=== PATIENT | female | born 1970 | race Caucasian/White ===

== ENCOUNTER 2024-07-22 12:22 | Observation (INO) ==
--- NOTE | 2024-07-22 12:42 | Emergency Department Note ---
HPI - Chest Pain General Chief Complaint: Chest Pain Stated Complaint: HIGH BLOOD PRESSURE, LOW O2 SAT Time Seen by Provider: 07/22/24 12:36 Source: patient and family Mode of arrival: walk-in Limitations: no limitations History of Present Illness HPI narrative: This is a 53 year old female patient that presents to the ER with c/o substernal chest pain radiating down left arm. Patient also c/o having brain fog and a headache today. Patient denies any SOB, back pain, abdominal pain, fever, chills, numbness, tingling, weakness or N/V/D MD complaint: Reports chest pain Onset (ago): hour(s) (3) Timing of current episode: Reports constant Prior episodes: Yes Onset: Reports during rest Pain location: Reports substernal Pain radiation: Reports left arm Severity: mild Quality: Reports tightness Relieving factors: Reports nothing Exacerbating factors: Reports nothing Treatment prior to arrival: Reports none Risk Factors Coronary artery disease risk factors: Reports hypertension Thoracic aortic dissection risk factors: Reports none Pulmonary embolism risk factors: Reports none Related Data Home Medications Medication Instructions Recorded Confirmed amlodipine 2.5 mg tablet 2.5 mg PO DAILY 06/14/24 06/14/24 clopidogrel 75 mg tablet 75 mg PO DAILY 06/14/24 06/14/24 diazepam 5 mg tablet 5 mg PO BID 06/14/24 06/14/24 gabapentin 100 mg capsule 100 mg PO BID 06/14/24 06/14/24 modafinil 200 mg tablet 200 mg PO BID 06/14/24 06/14/24 tramadol 50 mg tablet 50 mg PO .prn 06/14/24 06/14/24 Previous Rx's Medication Instructions Recorded albuterol sulfate 90 mcg/actuation 2 puff inhalation QID PRN 06/14/24 aerosol inhaler shortness of breath or wheezing #8.5 grams benzonatate 100 mg capsule 100 mg PO TID PRN cough #21 caps 06/14/24 doxycycline hyclate 100 mg capsule 100 mg PO BID bronchitis #20 caps 06/14/24 methylprednisolone 4 mg tablets in See Rx Instructions PO .COMPLEX 06/14/24 a dose pack (Medrol (Chris)) bronchitis #21 ea Allergies Allergy/AdvReac Type Severity Reaction Status Date / Time fexofenadine (From Ana) Allergy Mild Verified 07/22/24 12:53 levofloxacin (From Levaquin) Allergy Mild Verified 07/22/24 12:53 lorazepam (From Ativan) Allergy Mild Verified 07/22/24 12:53 morphine Allergy Mild Verified 07/22/24 12:53 NSAIDS (Non-Steroidal Allergy Mild Verified 07/22/24 12:53 Anti-Inflamma Review of Systems Status of ROS 10 or more systems reviewed and unremark able except as noted in history and below Constitutional Denies: fever, chills, change in weight, fatigue, malaise or night sweats Eyes Denies: change in vision, blurry vision, blind spots or light sensitivity Ears, nose, mouth, and throat Denies: throat pain, neck pain, throat swelling, difficulty swallowing, hoarseness, mouth pain or swelling of lips/tongue Cardiovascular Reports: chest pain; Denies: palpitations, edema, swelling of feet/ankles, lightheadedness or shortness of breath with exertion Respiratory Denies: shortness of breath, cough, wheezing, stridor, pain on inspiration or change in phlegm color Gastrointestinal Denies: abdominal pain, nausea, vomiting, coffee grounds in vomit, heartburn, diarrhea or constipation Genitourinary Denies: painful urination, urinary frequency, urinary urgency, urinary incontinence, blood in urine, difficulty voiding, pelvic pain, painful menstruation or vaginal bleeding Musculoskeletal Denies: back pain, neck pain, extremity pain, extremity swelling, joint pain or limited range of motion Integumentary/Breast Denies: rash, itching, redness, skin pain, skin tendernes s, skin swelling or sores Neurological Reports: headache; Denies: numbness in extremities, weakness in extremities, lack of coordination, dizziness, vertigo or confusion Psychiatric Denies: anxiety, mood swings, panic attacks, change in sleep pattern, hopelessness or loss of interest Endocrine Denies: excessive urination, excessive thirst, fatigue, cold intolerance, excessive sweating or flushing Hematologic/Lymphatic Denies: easy bruising, easy bleeding or enlarged lymph nodes Allergic/Immunologic Denies: hives, throat swelling, tongue swelling, facial swelling or wheezing Exam Constitutional: normal general appearance and no apparent distress Vital Signs - 24 hr 07/22/24 12:25 07/22/24 12:25 07/22/24 13:00 Temperature 97.8 F Pulse Rate 91 H 78 Respiratory Rate 18 15 Blood Pressure 170/93 138/88 Pulse Oximetry 100 100 97 Oxygen Delivery Me thod Room Air Room Air 07/22/24 14:00 07/22/24 15:00 07/22/24 16:00 Temperature Pulse Rate 68 75 74 Respiratory Rate 14 14 17 Blood Pressure 124/87 118/87 135/88 Pulse Oximetry 97 97 97 Oxygen Delivery Me thod HENMT: normocephalic, head/scalp atraumatic, hearing grossly normal bilaterally, external ears normal, nasal mucous membranes normal, external nose normal, oral mucous membranes normal and oropharynx normal Eyes: PERRL, EOMs intact bilaterally, conjunctivae normal and no scleral icterus Neck/C-Spine: visual inspection normal and trachea midline Lymph: no lymphadenopathy noted Chest: inspection of chest normal Respiratory: breath sounds equal bilaterally, normal respiratory effort, clear to auscultation bilaterally, no wheezes, no rales, no retractions, no use of accessory muscles and chest percussion normal Cardiovascular: normal heart rate noted, regular rhythm noted, no gallop, no rub, no murmur, no JVD, no clicks, peripheral pulses 2+ throughout and no additional abnormal heart sounds Gastrointestinal: abdomen normal to inspection, abdomen soft to palpation, nontender to palpation, nontender to percussion, nondistended, normoactive bowel sounds, no hepatosplenomegaly, no masses, no pulsatile mass, no ascites and no hernia Genitourinary: no CVA tenderness Back/Pelvis: spine normal to inspection Extremities: normal to inspection, normal to palpation, no tenderness, full ROM, no joint enlargement and no deformity Neurology: foreign car mechanic II-XII intact, no movement abnormality noted, no focal motor deficit noted, no sensory deficits noted, gait normal, speech normal, coordination normal, no pronator drift noted, no fasciculations noted and GCS n ormal neurologically intact on exam Psychiatry: mental status grossly normal, oriented x3, thought process normal, cooperative, affect normal, psychomotor activity normal and memory normal Skin: skin color normal Course Course Hospital Course: 1500: due to patients hx, ongoing chest pain, will admit patient to the hospital for further evaluation and treatment, VSS, no s/s of acute distress noted Reevaluation(s) Reevaluation #1: [id number]: Floor RN was concerned about patients frown droop on the left side when she is at rest (normal for patient per patient), examined patient again, patient has no facial droop on exam, facial nerves all intact and remains neurologically intact on the rest of the exam as well. NIELSEN without difficulty and equal. no s/s of acute distress noted Vital Signs Vital signs: Vital Signs Temperature 97.8 F 07/22/24 12:25 Pulse Rate 91 H 07/22/24 12:25 Respiratory Rate 18 07/22/24 12:25 Blood Pressure 170/93 07/22/24 12:25 Pulse Oximetry 100 07/22/24 12:25 Oxygen Delivery Method Room Air 07/22/24 12:25 Temperature 98.3 F 07/22/24 16:45 Pulse Rate 70 07/22/24 16:45 Respiratory Rate 17 07/22/24 16:45 Blood Pressure 141/87 07/22/24 16:45 Pulse Oximetry 97 07/22/24 16:45 Oxygen Delivery Method Room Air 07/22/24 17:10 MDM - Chest Pain Lab Data Labs: Lab Results 07/22/24 07/22/24 Range/Units 12:35 12:45 WBC 7.9 (4.3-9.3) K/uL RBC 4.5 (4.00-5.50) M/uL Hgb 12.6 (12.5-15.8) gm/dL Hct 39.2 (35.9-46.7) % MCV 87.6 (81.0-93.7) fl MCH 28.1 (27.6-32.2) pg MCHC 32.1 L (33.1-35.3) g/dl RDW 14.5 H (11.4-14.2) % Plt Count 379 H (152-353) K/uL MPV 6.9 (6.9-10.8) fl Gran % 56.7 (47.8-71.3) % Lymph % (Auto) 31.0 (20.0-43.0) % Rock % (Auto) 6.1 (3.6-9.8) % Eos % (Auto) 5.6 H (0.4-2.8) % Baso % (Auto) 0.6 (0.1-0.85) Lymph # (Auto) 2.4 (1.1-3.1) Rock # (Auto) 0.5 L (1.1-3.1) Eos # (Auto) 0.4 H (0.0-0.2) Baso # (Auto) 0.0 (0.0-0.1) Absolute Gran (auto) 4.5 (2.3-6.0) D-Dimer 708 H (100-600) ng/mL Sodium 139 (136-145) mmol/L Potassium 3.3 L (3.6-5.2) mmol/L Chloride 101.0 (98-107) mmol/L Carbon Dioxide 30 (21-32) mmol/L Anion Gap 8.0 (4-14) mEq/L BUN 9 (7-18) mg/dL Creatinine 0.7 (0.6-1.3) mg/dL Estimated GFR 103.4 (>59.9) Glucose 92 (70-110) mg/dL Calcium 8.6 (8.5-10.1) mg/dL Total Bilirubin 0.27 (0.0-1.0) mg/dL AST 16 (15-37) U/L ALT 22 L (30-65) U/L Alkaline Phosphatase 154 H (50-136) U/L Troponin I High Sens <4.00 L (4.0-60.4) ng/L Total Protein 7.4 (6.4-8.2) g/dL Albumin 3.6 (3.4-5.0) g/dL Urine Color Yellow (STRAW/YELL.) Urine Appearance Clear (CLEAR) Ur Specific Julian 1.015 (1.001-1.035) Urine Protein Negative (NEGATIVE) Urine Glucose (UA) Normal (NORMAL) Urine Ketones Negative (NEGATIVE) Urine Occult Blood Negative (NEG - TRACE) Urine Nitrite Negative (NEGATIVE) Urine Bilirubin Negative (NEGATIVE) Urine Urobilinogen Normal (NORMAL) Ur Leukocyte Esterase Negative (NEGATIVE) Fluid pH 7.0 (5 - 9) Urine Opiates Screen Neg. (NEGATIVE) Urine Methadone Screen Neg. (NEGATIVE) Barbiturate Screen Neg. (NEGATIVE) Ur Phencyclidine Scrn Neg. (NEGATIVE) Amphetamines Screen Neg. (NEGATIVE) U Benzodiazepines Scrn Pos. (NEGATIVE) Urine Cocaine Screen Neg. (NEGATIVE) U Marijuana (THC) Screen Neg. (NEGATIVE) Discharge Plan Discharge Patient Disposition: Admitted As Observation Condition: Stable Interventions: ED Discharge Assessment Last Done: 07/22/24 16:45 ED Discharge Vital Sign Last Done: 07/22/24 16:45 Emergency Department Charge Sheet Last Done: 07/22/24 16:45 Discharge Date/Time: 07/22/24 16:45 [facility] Medical History (Updated 07/22/24 @ 12:57 by Farnaz Dumont, RN) GERD (gastroesophageal reflux disease) Anxiety Depression HTN (hypertension) Brain aneurysm Surgical History (Updated 07/22/24 @ 12:57 by Farnaz Dumont, RN) History of gastric bypass Social History Smoking status: never smoker
[2024-07-22 12:53] LABS: Basophils%(Percent) Auto 0.6 (0.1-0.85); Eosinophils#(Absolute)Auto 0.4 (0.0-0.2); Eosinophils%(Percent) Auto 5.6 % (0.4-2.8); Granulocytes % - Auto 56.7 % (47.8-71.3); Granulocytes#(Absolute)- Auto 4.5 (2.3-6.0); Hematocrit 39.2 % (35.9-46.7); Mean Corpuscular Volume 87.6 fl (81.0-93.7); Monocytes #(Absolute)- Auto 0.5 (1.1-3.1); Monocytes %(Percent)- Auto 6.1 % (3.6-9.8); Platelet Count 379 K/uL (152-353); White Blood Count 7.9 K/uL (4.3-9.3)
[2024-07-22 12:57] LABS: Specific Gravity Urine 1.015 (1.001-1.035); Urine Appearance CLEAR (CLEAR); Urine Blood NEGATIVE (NEG - TRACE); Urine Color YELLOW (STRAW/YELL.); Urine Urobilinogen Normal (NORMAL)
[2024-07-22 13:05] LABS: Amphetamine Screen Urine NEG. (NEGATIVE); Cannabinoid Screen Urine NEG. (NEGATIVE); Cocaine Screen Urine NEG. (NEGATIVE); Methadone Screen Urine NEG. (NEGATIVE); Opiate Screen Urine NEG. (NEGATIVE); Potassium 3.3 mmol/L (3.6-5.2)
[2024-07-22] MEDS ORDERED: ONDANSETRON HCL/PF 4 MG/2 ML VIAL ONE (15:07)
[2024-07-22] MEDS ORDERED: ACETAMINOPHEN 500 MG TABLET ONE (15:07)
[2024-07-22] MEDS: ONDANSETRON HCL/PF 4 MG/2 ML VIAL INJ STA (15:10)
[2024-07-22] MEDS: ACETAMINOPHEN 500 MG TABLET PO ONE (15:11)
[2024-07-22] MEDS: POTASSIUM CHLORIDE 20 MEQ TAB.ER.PRT PO ONE (15:33)
[2024-07-22] MEDS: KETOROLAC 30 MG/ML INJ VIAL IVP ONE (16:34)
[2024-07-22] MEDS: ONDANSETRON HCL/PF 4 MG/2 ML VIAL IVP PRN (19:34)
[2024-07-22] MEDS: TRAMADOL HCL 50 MG TABLET PO PRN (22:17)
[2024-07-22] MEDS: ACETAMINOPHEN 325 MG TABLET PO PRN (22:17)
[2024-07-22] MEDS: diazePAM 5 MG TABLET PO PRN (22:17)
[2024-07-22] MEDS: GABAPENTIN 100 MG CAPSULE PO SCH (22:17)
[2024-07-22] MEDS: NITROGLYCERIN 1 GM OINT...G. TD SCH (22:18)
[2024-07-23 02:21] LABS: Potassium 3.4 mmol/L (3.6-5.2)
[2024-07-23] MEDS: TRAMADOL HCL 50 MG TABLET PO ONE (02:30)
[2024-07-23 02:54] LABS: Basophils%(Percent) Auto 0.6 (0.1-0.85); Eosinophils#(Absolute)Auto 0.4 (0.0-0.2); Eosinophils%(Percent) Auto 7.5 % (0.4-2.8); Granulocytes % - Auto 42.7 % (47.8-71.3); Granulocytes#(Absolute)- Auto 2.3 (2.3-6.0); Hematocrit 34.6 % (35.9-46.7); Mean Corpuscular Volume 88.2 fl (81.0-93.7); Monocytes #(Absolute)- Auto 0.4 (1.1-3.1); Platelet Count 331 K/uL (152-353); White Blood Count 5.4 K/uL (4.3-9.3)
[2024-07-23 02:59] LABS: INR 1.03
[2024-07-23] MEDS: AMLODIPINE BESYLATE 5 MG TABLET PO SCH (09:36)
[2024-07-23] MEDS: diphenhydrAMINE HCL 50 MG/ML VIAL INJ ONE ×2 (10:39→21:11)
[2024-07-23] MEDS: KETOROLAC 30 MG/ML INJ VIAL IVP PRN (10:40)
[2024-07-23] MEDS: METOCLOPRAMIDE HCL 10 MG in 0.9 % SODIUM CHLORIDE 50 ML IVP PRN (10:41)
[2024-07-23] MEDS: diphenhydrAMINE HCL 50 MG/ML VIAL ONE (10:48)
[2024-07-23] MEDS: KETOROLAC 30 MG/ML INJ VIAL ONE (10:48)
[2024-07-23] MEDS: 0.9 % SODIUM CHLORIDE 50 ML IV ONE (10:48)
[2024-07-23] MEDS: METOCLOPRAMIDE HCL 5 MG/ML VIAL ONE (10:48)
--- NOTE | 2024-07-23 14:27 | History & Physical Report ---
H&P: HPI History of Present Illness Chief complaint: chest pain,headache Narrative: This is a 53 year old female patient that presents to the ER with c/o substernal chest pain radiating down left arm. Patient also c/o having brain fog and a headache today. Patient denies any SOB, back pain, abdominal pain, fever, chills, numbness, tingling, weakness or N/V/D. Admitted patient to med/surg for further observation and treatment. Day one of hospital stay, provider consulted with patient's current Neurologist with symptoms and agreement on plan of care. Patient had a previous aneurysm back in April 2024 of 2.3 mm of Anterior Communicating Artery behind previous aneurysm with repair. Patient has stated the pain from her headache is 9 out of 10 and feels like the headache with her previous aneurysm and similar to some of her recent headaches that had improved with aneurysm removal. Chest pain was radiating down left arm and has resolved since admission and Nitro present for the the chest pain may be worsening her headache. Her spouse expressed concern about her leg hurting where she had stents located, stating the last time she had pain there, she had to have the stinted areas "cleaned out". Patient has been given Metoclopramide and Acetaminophen for headache pain. Patient was able to rest once medication was administered as the previous meds gave her no relief and CTA was ordered by me for Dr Mojica neurology in [place] at [facility]. family and patient given lots of reassurance and education as they are anxious at this time talked to patient and son together and separately. Review of Systems Status of ROS 10 or more systems reviewed and unremark able except as noted in history and below Constitutional Denies: fever, chills, change in weight, fatigue, malaise or ni ght sweats Eyes Denies: change in vision, blurry vision, blind spots or light sensitivity Ears, nose, mouth, and throat Denies: throat pain, neck pain, throat swelling, difficulty swallowing, hoarseness, mouth pain, swelling of lips/tongue or vertigo Cardiovascular Reports: chest pain; Denies: palpitations, edema, swelling of feet/ankles, lightheadedness or shortness of breath with exertion Respiratory Denies: shortness of breath, cough, wheezing, stridor, pain on inspiration or change in phlegm color Gastrointestinal Denies: abdominal pain, nausea, vomiting, coffee grounds in vomit, heartburn, diarrhea, constipation or difficulty swallowing Genitourinary Denies: painful urination, urinary frequency, urinary urgency, urinary incontinence, blood in urine, difficulty voiding, pelvic pain, painful menstruation or vaginal bleeding Musculoskeletal Denies: back pain, neck pain, extremity pain, extremity swelling, joint pain or limited range of motion Integumentary/Breast Denies: rash, itching, redness, skin pain, skin tenderness, skin swelling or sores Neurological Reports: headache; Denies: numbness in extremities, weakness in extremities, lack of coordination, dizziness, vertigo or confusion Psychiatric Denies: anxiety, mood swings, panic attacks, change in sleep pattern, hopelessness or loss of interest Endocrine Denies: excessive urination, excessive thirst, fatigue, cold intolerance, excessive sweating or flushing Hematologic/Lymphatic Denies: easy bruising, easy bleeding or enlarged lymph nodes Allergic/Immunologic Denies: hives, throat swelling, tongue swelling, facial swelling or wheezing PFSH PFS Medical History (Updated 07/23/24 @ 16:04 by Trisha Soler DO) Aneurysm of anterior communicating artery Intractable vascular headache GERD (gastroesophageal reflux disease) Anxiety Depression HTN (hypertension) Brain aneurysm Surgical History History of gastric bypass Social History Smoking status: never smoker Problems where you live: no known problems Highest level of school completed/degree received: high school Meds Home Medications and Allergies Home Medications Medication Instructions Recorded Confirmed Type albuterol sulfate 90 mcg/actuation 2 puff inhalation QID PRN 06/14/24 07/23/24 Rx aerosol inhaler shortness of breath or wheezing #8.5 grams amlodipine 2.5 mg tablet 2.5 mg PO DAILY 06/14/24 07/23/24 History clopidogrel 75 mg tablet 75 mg PO DAILY 06/14/24 07/23/24 History diazepam 5 mg tablet 5 mg PO BID PRN anxiety 06/14/24 07/23/24 History doxycycline hyclate 100 mg capsule 100 mg PO BID bronchitis #20 caps 06/14/24 07/23/24 Rx gabapentin 100 mg capsule 100 mg PO BID 06/14/24 07/23/24 History modafinil 200 mg tablet 200 mg PO BID 06/14/24 07/23/24 History tramadol 50 mg tablet 50 mg PO BID PRN pain 06/14/24 07/23/24 History acetaminophen 325 mg capsule 325 mg PO Q6H PRN pain 07/23/24 07/23/24 History biotin 1 mg capsule 2 mg PO BID 07/23/24 07/23/24 History cholecalciferol (vitamin D3) 1,250 1,250 mcg PO QWEEK 07/23/24 07/23/24 History mcg (50,000 unit) capsule cyanocobalamin (vitamin B-12) 1,000 mcg PO DAILY 07/23/24 07/23/24 History 1,000 mcg tablet (Vitamin B-12) multivitamin with minerals-folic tab PO 07/23/24 History acid 200 mcg chewable tablet (Adult Multivitamin Gummies) pantoprazole 40 mg tablet,delayed 40 mg PO QDAY 07/23/24 07/23/24 History release semaglutide (weight loss) 0.25 0.5 mg subcut Q7D 07/23/24 07/23/24 History mg/0.5 mL subcutaneous pen injector (Shannonvaudrey) valsartan 80 mg tablet 80 mg PO QDAY 07/23/24 07/23/24 History Allergies Allergy/AdvReac Type Severity Reaction Status Date / Time fexofenadine (From Ana) Allergy Mild Verified 07/22/24 12:53 levofloxacin (From Levaquin) Allergy Mild Verified 07/22/24 12:53 lorazepam (From Ativan) Allergy Mild Verified 07/22/24 12:53 morphine Allergy Mild Verified 07/22/24 12:53 NSAIDS (Non-Steroidal Allergy Mild Verified 07/22/24 12:53 Anti-Inflamma Exam Exam: Patient resting in low lee's position with spouse at bedside upon entering room for exam. Constitutional: abnormal general appearance (disheveled) and (chronically ill), distress noted (moderate), abnormal body habitus (obese), limitations noted (behavioral limitations) and (physical limitations) and alert Vital Signs - 24 hr 07/22/24 14:00 07/22/24 15:00 07/22/24 16:00 Temperature Pulse Rate 68 75 74 Pulse Rate [Left A pical] Respiratory Rate 14 14 17 Blood Pressure 124/87 118/87 135/88 Blood Pressure [Le ft Arm] Pulse Oximetry 97 97 97 Oxygen Delivery Me thod 07/22/24 16:45 07/22/24 16:45 07/22/24 17:05 Temperature 98.3 F 98.5 F Pulse Rate 70 70 Pulse Rate [Left A pical] 71 Respiratory Rate 17 17 16 Blood Pressure 141/87 141/87 Blood Pressure [Le ft Arm] 135/76 Pulse Oximetry 97 97 98 Oxygen Delivery Me thod Room Air 07/22/24 17:10 07/22/24 22:18 07/22/24 23:18 Temperature Pulse Rate Pulse Rate [Left A pical] Respiratory Rate Blood Pressure 119/71 112/60 Blood Pressure [Le ft Arm] Pulse Oximetry Oxygen Delivery Me thod Room Air 07/23/24 08:03 07/23/24 09:36 07/23/24 12:39 Temperature 98.4 F 98.0 F Pulse Rate Pulse Rate [Left A pical] 64 65 Respiratory Rate 19 18 Blood Pressure 100/60 Blood Pressure [Le ft Arm] 100/60 90/53 Pulse Oximetry 93 L 94 L Oxygen Delivery Me thod Room Air Room Air HENMT: normocephalic, head/scalp atraumatic, hearing grossly abnormal, external ears normal, nasal mucous membranes normal, external nose normal, oral mucous membranes normal, oropharynx normal and dentition abnormal Eyes: PERRL, EOMs intact bilaterally, conjunctivae normal, no scleral icterus, papilledema noted, normal visual ho by confrontation, fundi abnormal, alignment normal, periorbital findings normal, visual acuity abnormal and no nystagmus Neck/C-Spine: trachea midline, cervical spine nontender, abnormal cervical ROM noted, supple, no meningeal signs, thyroid normal and no carotid bruits Lymph: no lymphadenopathy noted and no lymphedema noted Chest: inspection of chest normal Respiratory: breath sounds equal bilaterally, normal respiratory effort, clear to auscultation bilaterally, no wheezes, no rales, no retractions, no use of accessory muscles and chest percussion normal Cardiovascular: normal heart rate noted, regular rhythm noted, no gallop, no rub, no murmur, no JVD, no clicks, peripheral pulses 2+ throughout, no bruits noted and no additional abnormal heart sounds Gastrointestinal: abdomen normal to inspection, abdomen soft to palpation, nontender to palpation, nontender to percussion, nondistended, normoactive bowel sounds, no hepatosplenomegaly, no masses, no pulsatile mass, no ascites and no hernia Genitourinary: no CVA tenderness and bladder normal to palpation Back/Pelvis: no thoracic spine tenderness, no lumbar spine tenderness, thoracic spine ROM normal and lumbar spine ROM normal Extremities: normal to inspection, normal to palpation, no tenderness, full ROM, no joint enlargement and no deformity Neurology: clinical academic allergist II-XII intact, no movement abnormality noted, no focal motor deficit noted, sensory deficit noted, deep tendon reflexes 2+ bilaterally, gait abnormality noted, speech normal, coordination normal and GCS normal Psychiatry: mental status grossly normal, oriented x3, thought process normal, cooperative, affect normal, psychomotor activity normal and memory normal Feel stressed/tense/nervous/anxious/difficulty sleeping: decline to answer Skin: skin color normal, no rash, no lesions, ecchymosis noted, no wounds, no lacerations, skin turgor abnormal, no jaundice, no petechiae, no mottling and nails abnormality noted Assessment and Plan Assessment and Plan (1) Chest pain: Qualifiers: Chest pain type: unspecified Qualified Code(s): R07.9 - Chest pain, unspecified Code(s): R07.9 - Chest pain, unspecified (2) Intractable vascular headache: Code(s): G44.1 - Vascular headache, not elsewhere classified (3) Aneurysm of anterior communicating artery: Assessment and Plan: CTA head pending and will do MRI if CTA unchanged and headache not resolved Code(s): I67.1 - Cerebral aneurysm, nonruptured (4) HTN (hypertension): Qualifiers: Hypertension type: primary hypertension Qualified Code(s): I10 - Essential (primary) hypertension Code(s): I10 - Essential (primary) hypertension (5) Anxiety: Code(s): F41.9 - Anxiety disorder, unspecified (6) GERD (gastroesophageal reflux disease): Qualifiers: Esophagitis presence: without esophagitis Qualified Code(s): K21.9 - Gastro-esophageal reflux disease without esophagitis Code(s): K21.9 - Gastro-esophageal reflux disease without esophagitis (7) Headache: Qualifiers: Headache chronicity pattern: episodic headache Headache type: unspecified Intractability: intractable Qualified Code(s): R51.9 - Headache, unspecified Code(s): R51.9 - Headache, unspecified (8) Brain aneurysm: Code(s): I67.1 - Cerebral aneurysm, nonruptured (9) Depression: Qualifiers: Depression Type: unspecified Qualified Code(s): F32.A - Depression, unspecified Code(s): F32.A - Depression, unspecified Plan Amlodipine Besylate 25 mg PO DAILY Gabapentin 100 mg PO BID Ondansetron Hcl 4 mg IVP Q6H PRN Diazepam 5 mg PO ONCE PRN Tramadol Hcl 50 mg PO ONCE PRN Acetaminophen 325 mg PO ONCE PRN Ketorolac Tromethamine 30 mg IVP Q6H PRN Metoclopramide Hcl 10 mg in Sodium Chloride 52 mls @ 200 mls/hr IVP ONCE PRN Results Labs Labs: CBC WBC 5.4 K/uL (4.3-9.3) 07/23/24 01:05 RBC 3.9 M/uL (4.00-5.50) L 07/23/24 01:05 Hgb 11.1 gm/dL (12.5-15.8) L 07/23/24 01:05 Hct 34.6 % (35.9-46.7) L 07/23/24 01:05 MCV 88.2 fl (81.0-93.7) 07/23/24 01:05 MCH 28.2 pg (27.6-32.2) 07/23/24 01:05 MCHC 32.0 g/dl (33.1-35.3) L 07/23/24 01:05 RDW 14.0 % (11.4-14.2) 07/23/24 01:05 Plt Count 331 K/uL (152-353) 07/23/24 01:05 MPV 7.6 fl (6.9-10.8) 07/23/24 01:05 Gran % 42.7 % (47.8-71.3) L 07/23/24 01:05 Lymph % (Auto) 41.2 % (20.0-43.0) 07/23/24 01:05 [place] % (Auto) 8.0 % (3.6-9.8) 07/23/24 01:05 Eos % (Auto) 7.5 % (0.4-2.8) H 07/23/24 01:05 Baso % (Auto) 0.6 (0.1-0.85) 07/23/24 01:05 Lymph # (Auto) 2.2 (1.1-3.1) 07/23/24 01:05 [place] # (Auto) 0.4 (1.1-3.1) L 07/23/24 01:05 Eos # (Auto) 0.4 (0.0-0.2) H 07/23/24 01:05 Baso # (Auto) 0.0 (0.0-0.1) 07/23/24 01:05 Absolute Gran (auto) 2.3 (2.3-6.0) 07/23/24 01:05 BMP Sodium 139 mmol/L (136-145) 07/23/24 01:05 Potassium 3.4 mmol/L (3.6-5.2) L 07/23/24 01:05 Chloride 104.0 mmol/L (98-107) 07/23/24 01:05 Carbon Dioxide 29 mmol/L (21-32) 07/23/24 01:05 Anion Gap 6.0 mEq/L (4-14) 07/23/24 01:05 BUN 13 mg/dL (7-18) 07/23/24 01:05 Creatinine 0.7 mg/dL (0.6-1.3) 07/23/24 01:05 Estimated GFR 103.4 (>59.9) 07/23/24 01:05 Glucose 90 mg/dL (70-110) 07/23/24 01:05 Calcium 8.1 mg/dL (8.5-10.1) L 07/23/24 01:05 Total Bilirubin 0.23 mg/dL (0.0-1.0) 07/23/24 01:05 AST 18 U/L (15-37) 07/23/24 01:05 ALT 24 U/L (30-65) L 07/23/24 01:05 Alkaline Phosphatase 128 U/L (50-136) 07/23/24 01:05 Total Protein 6.2 g/dL (6.4-8.2) L 07/23/24 01:05 Albumin 2.9 g/dL (3.4-5.0) L 07/23/24 01:05 Cardiac Enzymes Troponin I High Sens 5.00 ng/L (4.0-60.4) 07/23/24 01:05 Liver Function Total Bilirubin 0.23 mg/dL (0.0-1.0) 07/23/24 01:05 AST 18 U/L (15-37) 07/23/24 01:05 ALT 24 U/L (30-65) L 07/23/24 01:05 Alkaline Phosphatase 128 U/L (50-136) 07/23/24 01:05 Total Protein 6.2 g/dL (6.4-8.2) L 07/23/24 01:05 Albumin 2.9 g/dL (3.4-5.0) L 07/23/24 01:05 Urine Urine Color Yellow (STRAW/YELL.) 07/22/24 12:35 Urine Appearance Clear (CLEAR) 07/22/24 12:35 Ur Specific [place] 1.015 (1.001-1.035) 07/22/24 12:35 Urine Protein Negative (NEGATIVE) 07/22/24 12:35 Urine Glucose (UA) Normal (NORMAL) 07/22/24 12:35 Urine Ketones Negative (NEGATIVE) 07/22/24 12:35 Urine Occult Blood Negative (NEG - TRACE) 07/22/24 12:35 Urine Nitrite Negative (NEGATIVE) 07/22/24 12:35 Urine Bilirubin Negative (NEGATIVE) 07/22/24 12:35 Urine Urobilinogen Normal (NORMAL) 07/22/24 12:35 Ur Leukocyte Esterase Negative (NEGATIVE) 07/22/24 12:35 Imaging Imaging ordered: Chest x-ray, CT scan - chest and CT scan - head Radiologist's impression: XR CHEST 1V Date of Service: 07/22/24 HISTORY: HIGH BLOOD PRESSURE; CV COMPARISON: June 14, 2024 FINDINGS: The trachea is midline. The cardiac silhouette is unremarkable. The lungs are clear without focal infiltrate or effusion. The bony thorax is unremarkable. IMPRESSION: No acute cardiopulmonary disease. CT PULMONARY ANGIOGRAM CHEST WITH CONTRAST (PE PROTOCOL) Date of Service: 07/22/24 HISTORY: chest pain; COMPARISON: None. TECHNIQUE: Axial CT images were obtained through the chest after the intravenous administra tion of contrast. Coronal reformatted images were included. Maximum intensity projection (MIP) images were performed per pulmonary angiogram protocol. Informed written consent was obtained prior to contrast administration. All CT scans at this facility use dose modulation, iterative reconstruction, and/or weight based dosing when appropriate to reduce radiation dose to as low as reasonably achievable. FINDINGS: HEART AND PULMONARY ARTERIES: No evidence of right ventricular strain. No filling defects in the pulmonary arteries to suggest emboli. SUPPORT DEVICES: None LYMPH NODES: No pathologically enlarged nodes. LUNGS AND PLEURA: Scattered areas of subsegmental atelectasis of the lung bases AIRWAYS: Normal UPPER ABDOMEN: Normal BONES: Normal IMPRESSION: No evidence of pulmonary embolism. Scattered areas of subsegmental atelectasis of the lung bases CT HEAD/BRAIN WO CON Date of Service: 07/22/24 HISTORY: pain COMPARISON: None. TECHNIQUE: Multiple axial images of the head were performed from the skullbase to the vertex using standard departmental protocol. Sagittal and coronal reformatted images were performed. Dose reduction techniques including Automated Exposure Control (AEC) and adjustment of mA and kV were utilized. FINDINGS: No hemorrhage or midline shift. Asif-white matter differentiation maintained. . Ventricles and cisterns are appropriate. Paranasal sinuses show mild mucosal thickening frontal sinus and ethmoid air cells and right maxillary sinus. Minimal mucosal thickening inferior left maxillary sinus. Coiling artifact is seen in the region of the left ICA terminus. No previous studies for comparison.. Calvarium unremarkable. No evidence for mass or mass effect by noncontrast CT. IMPRESSION: No acute intracranial findings. Minimal mucosal thickening paranasal sinuses. Left ICA terminus level postsurgical coiling artifact is evident. MRI is more sensitive for acute infarct.
[2024-07-23] MEDS ORDERED: NITROGLYCERIN 1 GM OINT...G. TD SCH (19:00)
[2024-07-23] MEDS ORDERED: METOCLOPRAMIDE HCL 10 MG in 0.9 % SODIUM CHLORIDE 50 ML IVP PRN (20:25)
[2024-07-24 04:52] LABS: Basophils%(Percent) Auto 0.7 (0.1-0.85); Eosinophils#(Absolute)Auto 0.4 (0.0-0.2); Eosinophils%(Percent) Auto 7.5 % (0.4-2.8); Granulocytes % - Auto 45.3 % (47.8-71.3); Granulocytes#(Absolute)- Auto 2.3 (2.3-6.0); Mean Corpuscular Volume 87.4 fl (81.0-93.7); Monocytes #(Absolute)- Auto 0.4 (1.1-3.1); Monocytes %(Percent)- Auto 7.9 % (3.6-9.8); Platelet Count 321 K/uL (152-353); White Blood Count 4.9 K/uL (4.3-9.3)
--- NOTE | 2024-07-24 16:32 | Internal Medicine Prog Note ---
Progress Note: A&P Assessment and Plan (1) Chest pain: Assessment and Plan: resolved Qualifiers: Chest pain type: unspecified Qualified Code(s): R07.9 - Chest pain, unspecified (2) Intractable vascular headache: Assessment and Plan: resolved (3) Aneurysm of anterior communicating artery: Assessment and Plan: CTA head pending and will do MRI if CTA unchanged and headache not resolved (4) HTN (hypertension): Assessment and Plan: lower the last 24hrs, but stable. Qualifiers: Hypertension type: primary hypertension Qualified Code(s): I10 - Essential (primary) hypertension (5) Anxiety: Assessment and Plan: stable (6) GERD (gastroesophageal reflux disease): Assessment and Plan: controlled Qualifiers: Esophagitis presence: without esophagitis Qualified Code(s): K21.9 - Gastro-esophageal reflux disease without esophagitis (7) Brain aneurysm: Assessment and Plan: stable (8) Depression: Assessment and Plan: stable Qualifiers: Depression Type: unspecified Qualified Code(s): F32.A - Depression, unspecified (9) Chronic venous insufficiency: Assessment and Plan: b/l. CTA w/ runoff benign. Will keep overnight and plan to discharge home tomorrow. Plan Amlodipine Besylate 25 mg PO DAILY Gabapentin 100 mg PO BID Ondansetron Hcl 4 mg IVP Q6H PRN Diazepam 5 mg PO ONCE PRN Tramadol Hcl 50 mg PO ONCE PRN Acetaminophen 325 mg PO ONCE PRN Ketorolac Tromethamine 30 mg IVP Q6H PRN Metoclopramide Hcl 10 mg in Sodium Chloride 52 mls @ 200 mls/hr IVP ONCE PRN Fall Risk Details Gusman Fall Scale Risk Level: Moderate Fall Risk Current Medications: Current Medications Acetaminophen (Acetaminophen 325 Mg Tablet) 325 mg PO ONCE PRN PRN Reason: Headache Last Admin: 07/24/24 11:57 Dose: 325 mg Amlodipine Besylate (Amlodipine Besylate 5 Mg Tablet) 2.5 mg PO DAILY [facility] Last Admin: 07/24/24 08:29 Dose: Not Given Diazepam (Diazepam 5 Mg Tablet) 5 mg PO ONCE PRN PRN Reason: Anxiety Last Admin: 07/22/24 22:17 Dose: 5 mg Gabapentin (Gabapentin 100 Mg Capsule) 100 mg PO BID MANDEEP Last Admin: 07/24/24 08:29 Dose: 100 mg Metoclopramide HCl 10 mg/ (Sodium Chloride) 52 mls @ 200 mls/hr IVP ONCE PRN PRN Reason: Headache Last Infusion: 07/23/24 22:07 Dose: Infused Metoclopramide HCl 10 mg/ (Sodium Chloride) 52 mls @ 200 mls/hr IVP Q6H PRN PRN Reason: Headache Ketorolac Tromethamine (Ketorolac 30 Mg/Ml Inj Vial) 30 mg IVP Q6H PRN PRN Reason: Headache Stop: 07/28/24 10:59 Last Admin: 07/23/24 21:10 Dose: 30 mg Ondansetron HCl (Ondansetron Hcl/Pf 4 Mg/2 Ml Vial) 4 mg IVP Q6H PRN PRN Reason: Nausea And Vomiting Last Admin: 07/24/24 13:13 Dose: 4 mg Tramadol HCl (Tramadol Hcl 50 Mg Tablet) 50 mg PO ONCE PRN PRN Reason: Pain Last Admin: 07/22/24 22:17 Dose: 50 mg Time Spent With Patient Time: Total time spent is greater than 50% in coordination of care (as documented) at patient's floor/unit and/or counseling patient: Internal Medicine - PN: Subj Subjective Interval history: Rested well overnight. Leg swelling improved to resolved, but still sore and tender to touch. No chest pain and DENNIS resolved. CTA iliacs/legs was benign. Has b/l ext iliac vein stents. Exam Constitutional: normal general appearance, no apparent distress, abnormal body habitus (obese), no limitations and alert Vital Signs - 24 hr 07/23/24 20:00 07/23/24 20:21 07/23/24 23:46 Temperature 97.8 F 98.5 F Pulse Rate [Left A pical] 77 65 Respiratory Rate 18 17 Blood Pressure Blood Pressure [Le ft Arm] 91/47 99/61 Pulse Oximetry 93 L 93 L 94 L Oxygen Delivery Me thod Room Air Nasal Cannula Room Air Oxygen Flow Rate 2 Fraction of Inspir ed Oxygen 28 07/24/24 03:54 07/24/24 08:00 07/24/24 08:29 Temperature 97.6 F 98.5 F Pulse Rate [Left A pical] 72 78 Respiratory Rate 19 19 Blood Pressure 115/66 Blood Pressure [Le ft Arm] 102/66 115/66 Pulse Oximetry 93 L 94 L Oxygen Delivery Me thod Room Air Room Air Oxygen Flow Rate Fraction of Inspir ed Oxygen 07/24/24 12:00 07/24/24 16:00 Temperature 99.2 F 98.6 F Pulse Rate [Left A pical] 87 78 Respiratory Rate 19 19 Blood Pressure Blood Pressure [Le ft Arm] 109/73 105/68 Pulse Oximetry 95 97 Oxygen Delivery Me thod Room Air Room Air Oxygen Flow Rate Fraction of Inspir ed Oxygen HENMT: normocephalic, head/scalp atraumatic and hearing grossly normal bilaterally Eyes: PERRL, EOMs intact bilaterally and conjunctivae normal Neck/C-Spine: visual inspection normal and trachea midline Respiratory: breath sounds equal bilaterally, normal respiratory effort and clear to auscultation bilaterally Cardiovascular: normal heart rate noted, regular rhythm noted and no murmur Gastrointestinal: abdomen soft to palpation, nontender to palpation, nondistended and normoactive bowel sounds Back/Pelvis: thoracic spine ROM normal and lumbar spine ROM normal Extremities: normal to inspection, normal to palpation, tenderness noted and full ROM Neurology: abstract manager II-XII intact, speech normal and GCS normal Psychiatry: mental status grossly normal, oriented x3, thought process normal, cooperative, affect abnormality noted (anxious) and (depressed), psychomotor activity normal and memory normal Internal Medicine - PN: Obj Da Labs Labs: Laboratory Results - last 24 hr 07/24/24 04:22 WBC 4.9 RBC 3.9 L Hgb 11.2 L Hct 34.0 L MCV 87.4 MCH 28.8 MCHC 32.9 L RDW 14.1 Plt Count 321 MPV 7.0 Gran % 45.3 L Lymph % (Auto) 38.6 [place] % (Auto) 7.9 Eos % (Auto) 7.5 H Baso % (Auto) 0.7 Lymph # (Auto) 1.9 [place] # (Auto) 0.4 L Eos # (Auto) 0.4 H Baso # (Auto) 0.0 Absolute Gran (auto) 2.3 Sodium 139 Potassium 4.0 Chloride 104.0 Carbon Dioxide 31 Anion Gap 4.0 BUN 17 Creatinine 0.7 Estimated GFR 103.4 Glucose 81 Calcium 8.3 L Phosphorus 4.8 Magnesium 1.9 Total Bilirubin 0.23 AST 13 L ALT 14 L Alkaline Phosphatase 115 Total Protein 5.9 L Albumin 2.7 L Review of Systems Status of ROS: 10 or more systems reviewed and unremarkable except as noted in history and below Constitutional: Denies: fever, chills, change in weight, fatigue, malaise or night sweats Eyes: Denies: change in vision, blurry vision, blind spots or light sensitivity Ears, nose, mouth, and throat: Denies: throat pain, neck pain, throat swelling, difficulty swallowing, hoarseness, mouth pain, swelling of lips/tongue or vertigo Cardiovascular: Reports: chest pain; Denies: palpitations, edema, swelling of feet/ankles, lightheadedness or shortness of breath with exertion Respiratory: Denies: shortness of breath, cough, wheezing, stridor, pain on inspiration or change in phlegm color Gastrointestinal: Denies: abdominal pain, nausea, vomiting, coffee grounds in vomit, heartburn, diarrhea, constipation or difficulty swallowing Genitourinary: Denies: painful urination, urinary frequency, urinary urgency, urinary incontinence, blood in urine, difficulty voiding, pelvic pain, painful menstruation or vaginal bleeding Musculoskeletal: Denies: back pain, neck pain, extremity pain, extremity swelling, joint pain or limited range of motion Integumentary/Breast: Denies: rash, itching, redness, skin pain, skin tenderness, skin swelling or sores Neurological: Reports: headache; Denies: numbness in extremities, weakness in extremities, lack of coordination, dizziness, vertigo or confusion Psychiatric: Denies: anxiety, mood swings, panic attacks, change in sleep pattern, hopelessness or loss of interest Endocrine: Denies: excessive urination, excessive thirst, fatigue, cold intolerance, excessive sweating or flushing Hematologic/Lymphatic: Denies: easy bruising, easy bleeding or enlarged lymph nodes Allergic/Immunologic: Denies: hives, throat swelling, tongue swelling, facial swelling or wheezing
[2024-07-25 08:20] VITALS: BP 120/79; PULSE 72; RESP 18; TEMP 98.7
[2024-07-25 08:52] LABS: Basophils%(Percent) Auto 0.4 (0.1-0.85); Eosinophils#(Absolute)Auto 0.3 (0.0-0.2); Eosinophils%(Percent) Auto 6.4 % (0.4-2.8); Granulocytes % - Auto 60.9 % (47.8-71.3); Granulocytes#(Absolute)- Auto 3.2 (2.3-6.0); Hematocrit 36.5 % (35.9-46.7); Mean Corpuscular Volume 88.1 fl (81.0-93.7); Monocytes #(Absolute)- Auto 0.3 (1.1-3.1); Platelet Count 341 K/uL (152-353); White Blood Count 5.3 K/uL (4.3-9.3)
--- NOTE | 2024-07-25 09:12 | Discharge Summary ---
DS: Providers Provider Date of admission: 07/22/24 16:32 Primary care physician: Landy Simpson Admitting clinician: Gracia Garcia Attending physician on admission: Trisha Soler Attending physician on discharge: Femi Fernandez Discharging clinician: Femi Fernandez Anticipated date of discharge: 07/25/24 DS: Diagnosis Discharge Diagnosis (1) Chest pain: Assessment and plan: resolved Qualifiers: Chest pain type: unspecified Qualified Code(s): R07.9 - Chest pain, unspecified (2) Intractable vascular headache: Assessment and plan: resolved (3) Aneurysm of anterior communicating artery: Assessment and plan: s/p coil. Vertebral still present (4) HTN (hypertension): Assessment and plan: stable Qualifiers: Hypertension type: primary hypertension Qualified Code(s): I10 - Essential (primary) hypertension (5) Anxiety: Assessment and plan: improved (6) GERD (gastroesophageal reflux disease): Assessment and plan: stable Qualifiers: Esophagitis presence: without esophagitis Qualified Code(s): K21.9 - Gastro-esophageal reflux disease without esophagitis (7) Brain aneurysm: Assessment and plan: see above (8) Depression: Assessment and plan: stable Qualifiers: Depression Type: unspecified Qualified Code(s): F32.A - Depression, unspecified (9) Chronic venous insufficiency: Assessment and plan: stable Plan discharge home for f/u with PCP and specialists. DS: Summary Hospital Course Hospital Course: Admitted for cardiac and neurological work-up. Testing benign during stay. CTA of aorta with run-off ordered due to history of ext iliac vein stents with repeated angioplasties. That was benign, as well. Outpt f/u with CV team recommended. Pt stable for discharge with slow return to baseline. Status at Discharge Functional status at discharge: independent ambulation Overall status at discharge: patient is progressing back to baseline Time Spent with Patient Time attestation: Total time spent providing and/or coordinating discharge services: Exam Constitutional: normal general appearance, no apparent distress, abnormal body habitus (obese), no limitations and alert Vital Signs - 24 hr 07/24/24 08:00 07/24/24 08:29 07/24/24 12:00 Temperature 98.5 F 99.2 F Pulse Rate [Left A pical] 78 87 Respiratory Rate 19 19 Blood Pressure 115/66 Blood Pressure [Le ft Arm] 115/66 109/73 Pulse Oximetry 94 L 95 Oxygen Delivery Me thod Room Air Room Air 07/24/24 16:00 07/24/24 20:00 07/24/24 23:50 Temperature 98.6 F 97.7 F 98.4 F Pulse Rate [Left A pical] 78 83 72 Respiratory Rate 19 16 18 Blood Pressure Blood Pressure [Le ft Arm] 105/68 113/75 104/62 Pulse Oximetry 97 96 93 L Oxygen Delivery Me thod Room Air Room Air Room Air 07/25/24 04:00 Temperature 98.1 F Pulse Rate [Left A pical] 67 Respiratory Rate 17 Blood Pressure Blood Pressure [Le ft Arm] 94/66 Pulse Oximetry 94 L Oxygen Delivery Me thod Room Air HENMT: normocephalic, head/scalp atraumatic, hearing grossly normal bilaterally and external ears normal Eyes: PERRL, EOMs intact bilaterally and conjunctivae normal Neck/C-Spine: visual inspection normal, trachea midline and cervical full ROM noted Respiratory: breath sounds equal bilaterally, normal respiratory effort and clear to auscultation bilaterally Cardiovascular: normal heart rate noted, regular rhythm noted and no murmur Gastrointestinal: abdomen soft to palpation, nontender to palpation, nondistended and normoactive bowel sounds Back/Pelvis: thoracic spine ROM normal and lumbar spine ROM normal Extremities: normal to inspection, normal to palpation, tenderness noted, full ROM, no joint enlargement and no deformity Neurology: no movement abnormality noted, speech normal, no fasciculations noted and GCS normal Psychiatry: mental status grossly normal, oriented x3, thought process normal, cooperative, affect normal, psychomotor activity normal and memory normal Discharge Plan Discharge Disposition: Home, Self-Care Condition: Stable Discharge Medications: Continued diazepam 5 mg tablet 5 mg PO BID PRN (Reason: anxiety) Patient Comments: PT STATES USING THIS EVERYDAY BID Rx Instructions: TAKE 1 TABLET BY MOUTH TWICE DAILY NEEDED FOR ANXIETY gabapentin 100 mg capsule 100 mg PO BID Rx Instructions: TAKE 1 CAPSULE BY MOUTH AT BEDTIME FOR 1 WEEK THEN TAKE 1 CAPSULE BY MOUTH TWICE DAILY modafinil 200 mg tablet 200 mg PO BID Rx Instructions: TAKE 1 TABLET BY MOUTH TWICE DAILY tramadol 50 mg tablet 50 mg PO BID PRN (Reason: pain) Patient Comments: PT STATES TAKING THIS WITH OTC TYLENOL Rx Instructions: TAKE 1 TABLET BY MOUTH TWICE DAILY FOR PAIN amlodipine 2.5 mg tablet 2.5 mg PO DAILY Rx Instructions: TAKE 1 TABLET BY MOUTH ONCE DAILY clopidogrel 75 mg tablet 75 mg PO DAILY doxycycline hyclate 100 mg capsule 100 mg PO BID Qty: 20 0RF albuterol sulfate 90 mcg/actuation HFA aerosol inhaler 2 puff inhalation QID PRN (Reason: shortness of breath or wheezing) Qty: 8.5 0RF Patient Comments: FROM PREVIOUS HOSPITAL VISIT pantoprazole 40 mg tablet,delayed release (DR/EC) 40 mg PO QDAY Rx Instructions: TAKE ONE TABLET BY MOUTH ONCE DAILY FOR STOMACH Wegovy 0.25 mg/0.5 mL pen injector 0.5 mg SUBCUT Q7D Patient Comments: PT STATED SHE TOOK HER FIRST SHOT ON FridayJun Rx Instructions: INJECT 0.5 MILLILITERS (0.25 MILLIGRAMS) UNDER THE SKIN ONCE WEEKLY valsartan 80 mg tablet 80 mg PO QDAY Rx Instructions: TAKE ONE TABLET BY MOUTH ONCE DAILY cyanocobalamin (vitamin B-12) [Vitamin B-12] 1,000 mcg tablet 1,000 mcg PO DAILY Rx Instructions: TAKE 1 TABLET BY MOUTH ONCE DAILY cholecalciferol (vitamin D3) 1,250 mcg (50,000 unit) capsule 1,250 mcg PO QWEEK Rx Instructions: TAKE 1 CAPSULE BY MOUTH EVERY WEEK acetaminophen 325 mg capsule 325 mg PO Q6H PRN (Reason: pain) Patient Comments: PT STATES TAKING THIS WITH HER TRAMADOL 50MG Rx Instructions: TAKE 1 CAPSULE BY MOUTH EVERY 6 HOURS biotin 1 mg capsule 2 mg PO BID Patient Comments: TAKE 2 CAPSULES TWICE DAILY multivit with min-folic acid [Adult Multivitamin Gummies] 200 mcg tablet,chewable PO Rx Instructions: ONE GUMMY ONCE DAILY Discharge Orders: Discharge Order (Routine); Ordered 07/25/24 Ordered By: Femi Fernandez Activity: increase activity as tolerated Diet: advance to your usual diet Interventions: Discharge Assessment Last Done: 07/25/24 09:31 MED/SURG & ICU Observation Charge Sheet Last Done: 07/25/24 05:50 Patient Instructions: Acute Headache (GEN), Anxiety (GEN) Forms: Portal/Health Info Access Inst Follow-Ups: Landy Simpson [Primary Care Provider] - Discharge Date/Time: 07/25/24 10:40
== END 2024-07-25 10:40 | disposition home or self-care (01) ==
LOC: MS 12:22 → ED 12:22 → MS 16:45
PROVIDERS: ADMIT Family Medicine; ATTEND Family Medicine